=== PATIENT | male | born 1950 | race Caucasian/White ===

== ENCOUNTER 2018-12-21 09:52 | Day surgery (SDC) | payer OTHER ==
[2018-12-19 12:01] VITALS: BMI 27.6
[~2018-12-21 09:52] MED LIST: DEXAMETHASONE SOD PHOSPHATE 10 MG/ML 1 ML VIAL IV ONE; DEXAMETHASONE SOD PHOSPHATE 4 MG/ML 1 ML VIAL IV ONE; FAMOTIDINE 20 MG/2 ML VIAL IV ONE; HYDROmorphone 0.5 MG/0.5 ML SYRINGE IVP PRN; LACTATED RINGERS 1,000 ML IV SCH; MIDAZOLAM (PF) 2 MG/2 ML VIAL IV PRN; ONDANSETRON 4 MG/2 ML VIAL IVP ONE; ceFAZolin 1,000 MG in DEXTROSE/WATER 1 50ML.BAG IV ONE
[2018-12-21] MEDS: OXYMETAZOLINE 0.05% NASL SPRAY 1 SPRAY BOTTLE NASAL ONE ×5 (11:29→11:57)
[2018-12-21] MEDS ORDERED: LIDOCAINE 1% 20 ML VIAL (10MG/ML) FOR IV START INTRADERMA ONE (11:30)
[2018-12-21] MEDS ORDERED: BUPIVACAIN-EPI 0.5%-1:200,000 30 ML VIAL SQ ONE ×2 (13:57→14:31)
[2018-12-21] MEDS ORDERED: LIDOCAINE 1%-EPI 1:100,000 20 ML VIAL SQ ONE ×2 (13:57→14:31)
[2018-12-21] MEDS ORDERED: ePHEDrine SULFATE/0.9% NACL/PF 50 MG/5 ML SYRINGE IV ONE (14:00)
[2018-12-21] MEDS ORDERED: GLYCOPYRROLATE 0.2 MG/ML 2 ML VIAL ONE (14:00)
[2018-12-21] MEDS ORDERED: ROCURONIUM BROMIDE 10 MG/ML 10 ML VIAL IV ONE (14:00)
[2018-12-21] MEDS ORDERED: LIDOCAINE 1% INJ 10MG/ML (20 ML MDV) ONE (14:00)
[2018-12-21] MEDS ORDERED: PROPOFOL 10 MG/ML 20 ML VIAL IV ONE (14:00)
[2018-12-21] MEDS ORDERED: MIDAZOLAM 2 MG/2 ML VIAL ONE (14:00)
[2018-12-21] MEDS ORDERED: fentaNYL (PF) 50 MCG/ML 2 ML AMP ONE (14:00)
[2018-12-21] MEDS ORDERED: NEOSTIGMINE 1 MG/ML 10 ML VIAL ONE (14:00)
[2018-12-21 14:50] VITALS: TEMP 97.1
--- NOTE | 2018-12-21 15:25 | P.OP ---
Date of Procedure: 12/21/18 Preoperative Diagnosis: 1.6 x 1.6 cm right nasal mass Postoperative Diagnosis: same Procedure(s) Performed: Excision of a 1.6 x 1.6 cm right nasal mass with reconstruction utilizing bilateral mucosal flaps. Anesthesia: RAFAELA Surgeon: Amol Hensley Estimated Blood Loss (ml): 5 Pathology: other (Right nasal septum) Condition: stable Disposition: PACU Indications for Procedure: This patient was found have a right nasal mass, surgical removal was recommended. All risks, benefits, and alternative therapies were discussed. Consent was obtained and all questions were answered. Operative Findings: Right nasal mass seen Description of Procedure: Patient was taken to the operative room and placed in the supine position. Patient underwent a general inhalation anesthetic. Nose was visualized and a right nasal mass was identified measuring 1.6 cm. The area was anesthetized with lidocaine 1% with epinephrine 1 100,000. 10 minutes were allowed wait for full vasoconstrictive effects to take place. A circular incision was made surrounding this 1.6 x 1.6 cm mass. It was removed with a delicate plastic scissors and a pickups. After was removed we elevated adjacent mucosal flaps and rotated them into position on a superior and inferiorly based pedicle flap. We rotated them into position and close the defect and we closed the defect with use of 50 rapid Vicryl. Excellent approximation was obtained. Nasal pore was inserted which is dissolvable. A follow-up is scheduled for 1 week.
[2018-12-21 15:33] VITALS: RESP 16
[2018-12-21 16:21] VITALS: BP 110/71; PULSE 77
== END 2018-12-21 16:40 | disposition home or self-care (01) ==
LOC: OR 09:52
PROVIDERS: ATTEND Otolaryngology
DX: J34.89 Other specified disorders of nose and nasal sinuses (principal); R23.4 Changes in skin texture; I11.0 Hypertensive heart disease with heart failure; I50.9 Heart failure, unspecified; J44.9 Chronic obstructive pulmonary disease, unspecified; F17.210 Nicotine dependence, cigarettes, uncomplicated; K21.9 Gastro-esophageal reflux disease without esophagitis; E78.5 Hyperlipidemia, unspecified; Z79.891 Long term (current) use of opiate analgesic; Z79.899 Other long term (current) drug therapy; Z88.8 Allergy status to other drugs, medicaments and biological substances
CPT/HCPCS: 88305; 14060; J2250; J1100; J2710; J2405; J2001; J3010; J0690; J2704